=== PATIENT | female | born 1955 | race African-American/Black ===

== ENCOUNTER 2019-11-06 13:36 | Emergency (ER) | payer MEDICARE, OTHER ==
[~2019-11-06] VITALS: Ht 167.6 cm; Wt 68.0 kg
[2019-11-06 13:50] VITALS: BP 164/77
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
[2019-11-06] MEDS ORDERED: HYDR-3164 PO (14:48)
[2019-11-06] MEDS ORDERED: HYDROcodone/APAP 5/325MG 1 TAB TABLET PO ONE (15:00)
== END 2019-11-06 14:52 | disposition home or self-care (01) ==
LOC: ER 13:36
DX: S39.012A Strain of muscle, fascia and tendon of lower back, initial encounter (principal); R20.0 Anesthesia of skin; E10.9 Type 1 diabetes mellitus without complications; E78.00 Pure hypercholesterolemia, unspecified; I10 Essential (primary) hypertension; F17.200 Nicotine dependence, unspecified, uncomplicated; G89.29 Other chronic pain; Z98.890 Other specified postprocedural states; Z88.8 Allergy status to other drugs, medicaments and biological substances; V49.9XXA Car occupant (driver) (passenger) injured in unspecified traffic accident, initial encounter; Y93.89 Activity, other specified; Y92.413 State road as the place of occurrence of the external cause; Y99.8 Other external cause status
CPT/HCPCS: 72100; 99283

== ENCOUNTER 2019-11-11 21:34 | Emergency (ER) | payer OTHER ==
[~2019-11-11] VITALS: Ht 167.6 cm; Wt 72.3 kg
[~2019-11-11 21:34] MED LIST: HYDR-3164 PO
[2019-11-11] MEDS ORDERED: CYCLOBENZAPRINE 10 MG TABLET. PO ONE (23:00)
[2019-11-11 23:15] VITALS: BP 172/74
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
[2019-11-12] MEDS ORDERED: CYCL10TA2 PO (00:40)
== END 2019-11-12 01:08 | disposition home or self-care (01) ==
LOC: ER 21:34
DX: S16.1XXD Strain of muscle, fascia and tendon at neck level, subsequent encounter (principal); E10.9 Type 1 diabetes mellitus without complications; E78.00 Pure hypercholesterolemia, unspecified; I10 Essential (primary) hypertension; F17.200 Nicotine dependence, unspecified, uncomplicated; Z88.5 Allergy status to narcotic agent; V49.9XXA Car occupant (driver) (passenger) injured in unspecified traffic accident, initial encounter; Y92.488 Other paved roadways as the place of occurrence of the external cause; Y93.89 Activity, other specified; Y99.8 Other external cause status
CPT/HCPCS: 72125; 99284